=== PATIENT | male | born 1965 | race Caucasian/White ===

== ENCOUNTER 2021-05-24 17:25 | Emergency (ER) | payer OTHER, SELFPAY ==
[2021-05-24 17:27] VITALS: BP 163/84; PULSE 81; RESP 16; TEMP 35.8; O2SAT 94
--- NOTE | 2021-05-24 18:21 | ED.EAR ---
HPI - Ear Problem General Chief complaint: Ear Stated complaint: piece of hearing aid stuck in ear Time Seen by Provider: 05/24/21 17:50 Source: patient Mode of arrival: ambulatory Limitations: no limitations History of Present Illness HPI Narrative: Patient presents for evaluation of retained foreign body in the right ear canal. He indicates his mother was having difficulty hearing at a holiday meal today. An attempt to assist her, he placed her hearing aid over his right ear. A rubber component fell into the right canal. He has chronic hearing loss and wears hearing aids bilaterally. He was unsure how to proceed so he came here for further evaluation. No drainage/blood from the canal. Reports some discomfort in the canal but denies other complaints. Related Data Allergies Allergy/AdvReac Type Severity Reaction Status Date / Time trazodone Allergy Unknown nightmare Verified 05/24/21 17:50 HYDROCODONE BIT AdvReac N/V Uncoded 05/24/21 17:50 Review of Systems Review of Systems: CONSTITUTIONAL: Denies fever, chills, or sweats. EYES: Denies visual changes, redness, or discharge. ENT: Reports retained foreign body in right ear. Denies rhinorrhea, congestion, sore throat, or otalgia. CARDIOVASCULAR: Denies chest pain, palpitations, or edema. RESPIRATORY: Denies cough or dyspnea. GASTROINTESTINAL: Denies abdominal pain, nausea, vomiting, or diarrhea. GENITOURINARY: Denies dysuria or hematuria. SKIN: Denies rash or itching. MUSCULOSKELETAL: Denies back pain, joint pain, or myalgia. NEUROLOGIC: Denies headache, numbness, dizziness, or weakness. PSYCHIATRIC: Denies anxiety or depression. [facility] Past Medical History Medical History (Updated 05/24/21 @ 18:38 by RHIANNON Gore, DAMARIS) Compartment syndrome Hearing loss Hypertension Surgical History Surgical History History of appendectomy Family History Family History Mother Hearing loss Social History Social History Smoking packs per day: 0.25 Smoking cigarettes per day: 5.0 Smoking status: Current every day smoker Alcohol intake: current Alcohol use details: social Substance use: never Living arrangements: alone Gender identity (if verbalized by the patient): Male Spiritual care concerns: No Exam Narrative: GENERAL: Well-appearing, well-nourished, and in no acute distress. HEAD: Normocephalic, atraumatic. EYES: PERRLA and EOMI. ENT: Nares clear, no rhinorrhea or epistaxis. Mucous membranes moist. Oropharynx without tonsillar hypertrophy exudate or other lesions. There is a rubber foreign body noted in the right ear canal NECK: Supple. No adenopathy or masses. No carotid bruits or JVD CHEST: Clear to auscultation. No respiratory distress. No wheezes rales or rhonchi HEART: Regular rate and rhythm. No murmur heard. Normal peripheral pulses. ABDOMEN: Soft, nontender, nondistended, normal active bowel sounds. EXTREMITIES: Normal range of motion. No edema. SKIN: Warm, dry, no rash. NEURO: No focal deficits. Alert and oriented x3. PSYCH: Normal mood and affect. Course Course Emergency Course: This is a 55-year-old male who presented with complaints of foreign body in the right ear canal after he dropped a piece of his mother's hearing aid in his ear canal. Foreign body was removed with alligator forceps. Patient tolerated well. No tympanic membrane puncture. Patient voiced resolution of discomfort. Advised to follow up outpatient for further evaluation and treatment and return for worsening symptoms. Pt in agreement with plan of care Vital Signs Vital signs: Vital Signs Temperature 35.8 C L 05/24/21 17:27 Pulse Rate 81 05/24/21 17:27 Respiratory Rate 16 05/24/21 17:27 Blood Pressure 163/84 H 05/24/21 17:27 Pulse Oximetry 94 05/24/21 17:27 Te
== END 2021-05-24 19:02 | disposition home or self-care (01) ==
PROVIDERS: Emergency Provider Nurse Practitioner; PCP Internal Medicine
DX: T16.1XXA Foreign body in right ear, initial encounter (principal); I10 Essential (primary) hypertension; F17.210 Nicotine dependence, cigarettes, uncomplicated
CPT/HCPCS: 69200; 99282